=== PATIENT | male | born 1950 | race Caucasian/White ===

== ENCOUNTER 2017-04-04 13:10 | Day surgery (SDC) | payer MEDICARE, BC ==
[~2017-04-04] VITALS: Ht 177.8 cm; Wt 95.9 kg
[~2017-04-04 13:10] MED LIST: BUPIVACAINE/PF 0.5% ONE; LEUP3.75 IM; MIRA50TA PO; PANT40TA5 PO; SIMV20TA3 PO
[2017-04-04 13:48] VITALS: BP 122/87
[2017-04-04] MEDS ORDERED: LACTATED RINGERS 1,000 ML IV SCH (13:51)
[2017-04-04] MEDS ORDERED: ASCO500T8 PO (13:52)
[2017-04-04] MEDS ORDERED: MIDAZOLAM 1 MG/ML, 2ML ONE (14:53)
[2017-04-04] MEDS ORDERED: FENTANYL PF 100 MCG/2ML ONE ×2 (14:53)
[2017-04-04] MEDS ORDERED: LIDOCAINE-MPF 2% ,5ML ONE (14:54)
[2017-04-04] MEDS ORDERED: PROPOFOL 10 MG/ML, 20ML ONE (14:54)
[2017-04-04] MEDS ORDERED: ROCURONIUM 10 MG/ML,10ML ONE (14:55)
[2017-04-04] MEDS ORDERED: CEFOTETAN PMX 2GM/50ML 50 ML IVPB ONE (15:30)
[2017-04-04] MEDS ORDERED: LABETALOL 5MG/ML, 20ML ONE (15:30)
[2017-04-04] MEDS ORDERED: DEXAMETHASONE 4 MG/ML, 1ML ONE ×2 (15:39)
[2017-04-04] MEDS ORDERED: BUPIVACAINE/PF-EPI 0.5% 1:200K IM ONE (15:46)
[2017-04-04] MEDS ORDERED: ONDANSETRON 2MG/ML, 2ML ONE ×2 (15:52)
[2017-04-04] MEDS ORDERED: KETOROLAC 30 MG/1 ML ONE (15:52)
[2017-04-04] MEDS ORDERED: HYDROmorphone 1 MG/ML, 1ML IV PRN (16:30)
[2017-04-04] MEDS ORDERED: LABETALOL 5MG/ML, 20ML IV PRN (16:30)
[2017-04-04] MEDS ORDERED: OXYcodone 5 MG/5 ML ORAL.SOL UDC PO PRN (16:30)
[2017-04-04] MEDS ORDERED: hydrALAzine 20 MG/ML, 1ML IV PRN (16:30)
[2017-04-04] MEDS ORDERED: FENTANYL PF 100 MCG/2ML IV PRN (16:30)
[2017-04-04] MEDS ORDERED: MEPERIDINE/PF 25MG/0.5ML IVPush PRN (16:30)
[2017-04-04] MEDS ORDERED: PROMETHAZINE 25 MG/ML, 1ML IV PRN (16:30)
[2017-04-04] MEDS ORDERED: ONDANSETRON 2MG/ML, 2ML IVPush PRN (16:30)
[2017-04-04] MEDS ORDERED: ACETAMINOPHEN 325 MG TABLET PO PRN (16:30)
[2017-04-04] MEDS ORDERED: OXYcodone 5 MG/5 ML ORAL.SOL UDC ONE (16:52)
[2017-04-04] MEDS ORDERED: MEPERIDINE/PF 50 MG/ML ONE (16:52)
== END 2017-04-04 18:10 ==
LOC: OUT 13:10
PROVIDERS: ATTEND Surgery
DX: K80.50 Calculus of bile duct without cholangitis or cholecystitis without obstruction (principal); K21.9 Gastro-esophageal reflux disease without esophagitis; E78.00 Pure hypercholesterolemia, unspecified; Z85.46 Personal history of malignant neoplasm of prostate; Z98.890 Other specified postprocedural states; Z72.89 Other problems related to lifestyle
CPT/HCPCS: 47562; 88304; J1100; J1885; J2175; J2250; J2405; J2704; J3010; J3490; J7120; S0074